=== PATIENT | female | born 1990 | race Caucasian/White ===

== ENCOUNTER 2016-12-17 19:05 | Emergency (ER) | payer MEDICAID ==
[2016-12-17 19:43] VITALS: BP 125/68
== END 2016-12-17 21:57 | disposition home or self-care (01) ==
LOC: ED 19:05
DX: S52.122A Displaced fracture of head of left radius, initial encounter for closed fracture (principal); W17.89XA Other fall from one level to another, initial encounter; Y93.89 Activity, other specified; Y92.89 Other specified places as the place of occurrence of the external cause; Y99.8 Other external cause status